=== PATIENT | female | born 1970 | race Caucasian/White ===

== ENCOUNTER 2017-09-28 14:25 | Emergency (ER) | payer BC ==
[2017-09-28] MEDS ORDERED: ACETAMINOPHEN 325 MG TABLET ONE (16:35)
[2017-09-28] MEDS ORDERED: NA CHLORIDE 0.9% 1,000 ML ONE ×2 (16:36→18:59)
[2017-09-28] MEDS ORDERED: METOCLOPRAMIDE 10 MG/2mL INJ ONE (16:36)
[2017-09-28] MEDS ORDERED: DIPHENHYDRAMINE 50 MG/ML VIAL ONE (16:36)
[2017-09-28 17:07] LABS: Absolute Lymphocytes (CBC) 2.2 K/uL (0.7-4.9); Absolute Monocytes 0.8 K/uL (0.1-1.3); Absolute Neutrophil 7.2 K/uL (1.8-8.0); Basophils % 0.7 % (0-1.3); Eosinophils % 1.2 % (0-4.4); Hematocrit 42.2 % (36.0-45.0); Lymphocytes % 20.7 % (15.3-44.8); MCV 93.2 fL (80-100); MPV 7.6 fL (7.6-11.3); Monocytes % 8.1 % (3.3-12.3); RBC Red Blood Cell Count 4.53 M/uL (3.86-4.86)
[2017-09-28 17:12] LABS: Urine Blood NEGATIVE (NEG); Urine Glucose NEGATIVE (NEG); Urine Protein NEGATIVE (NEG); Urine Specific Gravity 1.015 (1.005-1.030); Urine pH >8.5 (5.0-7.0)
[2017-09-28 17:16] LABS: Urine Bacteria <20 /HPF (<20); Urine RBC <5 /HPF (NONE SEEN)
[2017-09-28 17:17] LABS: Urine Amorphous Sediment 3+ /HPF (NONE SEEN); Urine Culture Reflex Order NOT NEEDED
[2017-09-28 17:27] LABS: Albumin 3.7 g/dL (3.4-5.0); Bilirubin Direct 0.1 mg/dL (0-0.2); Bilirubin Total 0.4 mg/dL (0.2-1.0); Potassium 3.7 mmol/L (3.5-5.1); Protein, Total 7.3 g/dL (6.4-8.2)
--- NOTE | 2017-09-28 19:33 | EDPHYS ---
Physician Documentation [facility] Name: Cheryl Chu Age: 46 yrs Sex: Female : 1970 Arrival Date: 09/28/2017 Time: 14:27 Bed 27 Private MD: Ronny Fairchild ED Physician Matt Mcgowan HPI: 09/28 16:27 This 46 yrs old Female presents to ER via Ambulatory with complaints of Flu jmm Symptoms. 16:27 This is a 46 year old female with a history of HTN that presents to the ED with 3 days jmm of earache, sore throat, body aches, and generalized abdomina pain. Patient denies vomiting or diarrhea. . Onset: The symptoms/episode began/occurred gradually, 3 day(s) ago. Historical: - Allergies: 14:49 No Known Allergies; ph - Home Meds: 14:49 Baclofen Oral [Active]; Doxycycline Oral [Active]; losartan Oral [Active]; omeprazole ph 20 mg Oral cpDR 1 cap once daily [Active]; sertraline oral oral [Active]; meloxicam oral oral [Active]; topiramate oral oral [Active]; - PMHx: 14:49 Back pain; Depression; GERD; Hypertension; Migraines; ph - PSHx: 14:49 Cholecystectomy; Hysterectomy; Hernia repair; Kidney stents; ureter reconstruction; ph - Immunization history:: Adult Immunizations up to date. - Social history:: Smoking status: Patient/guardian denies using tobacco. - Ebola Screening: : No symptoms or risks identified at this time. ROS: 17:51 Eyes: Negative for injury, pain, redness, and discharge. jmm 17:51 Neck: Negative for injury, pain, and swelling, Cardiovascular: Negative for chest pain, palpitations, and edema, Respiratory: Negative for shortness of breath, cough, wheezing, and pleuritic chest pain. 17:51 MS/Extremity: Negative for injury and deformity, Skin: Negative for injury, rash, and discoloration. 17:51 Constitutional: Positive for body aches, chills, malaise. 17:51 ENT: Positive for ear pain, sore throat. 17:51 Abdomen/GI: Positive for abdominal pain, Negative for nausea and vomiting, diarrhea. 17:51 Back: Positive for pain at rest. 17:51 Neuro: Positive for headache. 17:51 All other systems are negative. Exam: 17:51 Constitutional: This is a well developed, well nourished patient who is awake, alert, jmm and in no acute distress. Head/Face: atraumatic. ENT: Moist Mucus Membranes Neck: Trachea midline, Supple Chest/axilla: Normal chest wall appearance and motion. Cardiovascular: Regular rate and rhythm. No edema appreciated Respiratory: Normal respirations, no respiratory distress appreciated Abdomen/GI: Non distended, soft Back: Normal ROM Skin: General appearance color normal MS/ Extremity: Moves all extremities, no obvious deformities appreciated, no edema noted to the lower extremities 17:51 Abdomen/GI: Inspection: abdomen appears normal, Bowel sounds: normal, Palpation: abdomen is soft and non-tender, in all quadrants. Vital Signs: 14:55 BP 128 / 86; Pulse 74; Resp 16; Temp 98.2; Pulse Ox 98% on R/A; Pain 7/10; ph 16:45 BP 138 / 90; Pulse 76; Resp 16; Pulse Ox 98% on R/A; ph 17:45 BP 116 / 81; Pulse 74; Resp 18; Pulse Ox 97% on R/A; ph 19:00 BP 114 / 72; Pulse 78; Resp 18; Pulse Ox 96% on R/A; ph 19:51 BP 117 / 80; Pulse 75; Resp 17; Pulse Ox 99% on R/A; kr2 MDM: 16:27 Patient medically screened. [facility] 19:18 Data reviewed: vital signs, nurses notes, lab test result(s). Counseling: I had a [facility] detailed discussion with the patient and/or guardian regarding: the historical points, exam findings, and any diagnostic results supporting the discharge/admit diagnosis, the need for outpatient follow up, to return to the emergency department if symptoms worsen or persist or if there are any questions or concerns that arise at home. 21:30 Counseling: I had a detailed discussion with the patient and/or guardian regarding:. ED [facility] course: Upon reevaluation of the patient's abdomen. The patient developed pain on palpation of the left lower quadrant. I advised the patient of the need for CT imaging for further evaluation. The patient refused. The patient states she does feel better but still has a mild headache. Due to the patient's multiple complaints, symptoms appear related more towards a viral process. I discussed the need for close follow up with the patient's pcp. The patient was given strict return precautions for worsening pain, vomiting, ect. Patient understood and agrees with the plan of care. . 09/28 16:28 Order name: Amylase, Serum; Complete Time: 17:29 [facility] 09/28 16:28 Order name: Basic Metabolic Panel; Complete Time: 17:29 [facility] 09/28 16:28 Order name: CBC with Diff; Complete Time: 17:29 [facility] 09/28 16:28 Order name: Creatinine for Radiology; Complete Time: 17:29 [facility] 09/28 16:28 Order name: Hepatic Function; Complete Time: 17:29 [facility] 09/28 16:28 Order name: Lipase; Complete Time: 17:29 [facility] 09/28 16:28 Order name: Urine Microscopic Only; Complete Time: 17:29 [facility] 09/28 17:02 Order name: Urine Dipstick--Ancillary (enter results); Complete Time: 17:29 09/28 17:02 Order name: Urine --Ancillary (enter results); Complete Time: 17:29 09/28 17:31 Order name: Strep; Complete Time: 19:18 [facility] 09/28 17:31 Order name: Cass Screen Profile; Complete Time: 18:50 [facility] 09/28 18:59 Order name: Throat Culture [facility] 09/28 16:28 Order name: IV Saline Lock; Complete Time: 17:10 [facility] 09/28 16:28 Order name: Labs collected and sent; Complete Time: 17:10 [facility] 09/28 16:28 Order name: Urine Dipstick-Ancillary (obtain specimen); Complete Time: 17:10 [facility] Administered Medications: 16:50 Drug: Tylenol 650 mg Route: PO; ph 19:00 Follow up: Response: No adverse reaction ph 16:54 Drug: NS 0.9% 1000 ml Route: IV; Rate: 1 bolus; Site: right antecubital; ph 19:00 Follow up: Response: No adverse reaction; IV Status: Completed infusion ph 16:55 Drug: Reglan 10 mg Route: IVP; Site: right antecubital; ph 19:01 Follow up: Response: No adverse reaction ph 16:55 Drug: diphenhydrAMINE 12.5 mg Route: IVP; Site: right antecubital; ph 19:01 Follow up: Response: No adverse reaction ph 18:58 Drug: NS 0.9% 1000 ml Route: IV; Rate: 1 bolus; Site: right antecubital; rv 19:52 Follow up: Response: No adverse reaction; IV Status: Completed infusion kr2 Disposition: 09/29 07:04 Co-signature as Attending Physician, Matt Mcgowan MD. rn Disposition: 09/28/17 19:31 Discharged to Home. Impression: Abdominal Pain, Acute Headache, Otalgia, Acute pharyngitis. - Condition is Stable. - Discharge Instructions: Abdominal Pain, Adult, Pharyngitis, Rehydration, Adult. - Prescriptions for Ibuprofen 800 mg Oral Tablet - take 1 tablet by ORAL route every 8 hours As needed take with food; 30 tablet. Reglan 10 mg Oral Tablet - take 1 tablet by ORAL route every 6 hours take 30 minutes before meals and at bedtime; 20 tablet. - Medication Reconciliation Form, Thank You Letter, Antibiotic Education, Prescription Opioid Use form. - Follow up: Ronny Fairchild MD; When: 1 - 2 days; Reason: Continuance of care. - Notes: Please follow up with your primary care provider in 2 to 3 days for reevaluation. Please return to the ED if you develop increased pain, vomiting, fever, or any other concerning symptoms. Signatures: Dispatcher [employer] EDMS Benjamín Bailey PA PA jmm Nieto, Roman, MD MD rn Hall, Patricia, RN RN ph Reaves, Karey, RN RN kr2 Sim Lindo RN RN rv Corrections: (The following items were deleted from the chart) 09/28 19:53 19:31 09/28/2017 19:31 Discharged to Home. Impression: Abdominal Pain; Acute Headache; kr2 Otalgia; Acute pharyngitis. Condition is Stable. Forms are Medication Reconciliation Form, Thank You Letter, Antibiotic Education, Prescription Opioid Use. Follow up: Ronny Fairchild; When: 1 - 2 days; Reason: Continuance of care. yessenia 21:33 19:18 Counseling: I had a detailed discussion with the patient and/or guardian yessenia regarding: the historical points, exam findings, and any diagnostic results supporting the discharge/admit diagnosis, radiology results, the need for outpatient follow up, to return to the emergency department if symptoms worsen or persist or if there are any questions or concerns that arise at home, yessenia
--- NOTE | 2017-09-28 19:33 | ER ---
Nurse's Notes [facility] Name: Cheryl Chu Age: 46 yrs Sex: Female : 1970 Arrival Date: 09/28/2017 Time: 14:27 Bed 27 Private MD: Ronny Fairchild Diagnosis: Abdominal Pain;Acute Headache;Otalgia;Acute pharyngitis Presentation: 09/28 15:10 Presenting complaint: Patient states: Pt c/o sore throat, body aches, and LLQ pain, ph denies N/V/D or fever. States " The pain in my stomach almost felt like a kidney stone trying to pass. I have also been having phantom gallbladder pains.". Transition of care: patient was not received from another setting of care. Onset of symptoms was September 28, 2017. Risk Assessment: Do you want to hurt yourself or someone else? Patient reports no desire to harm self or others. Initial Sepsis Screen: Does the patient meet any 2 criteria? No. Patient's initial sepsis screen is negative. Does the patient have a suspected source of infection? No. Patient's initial sepsis screen is negative. Care prior to arrival: None. 15:10 Method Of Arrival: Ambulatory ph 15:10 Acuity: ELO 3 ph Historical: - Allergies: 14:49 No Known Allergies; ph - Home Meds: 14:49 Baclofen Oral [Active]; Doxycycline Oral [Active]; losartan Oral [Active]; omeprazole ph 20 mg Oral cpDR 1 cap once daily [Active]; sertraline oral oral [Active]; meloxicam oral oral [Active]; topiramate oral oral [Active]; - PMHx: 14:49 Back pain; Depression; GERD; Hypertension; Migraines; ph - PSHx: 14:49 Cholecystectomy; Hysterectomy; Hernia repair; Kidney stents; ureter reconstruction; ph - Immunization history:: Adult Immunizations up to date. - Social history:: Smoking status: Patient/guardian denies using tobacco. - Ebola Screening: : No symptoms or risks identified at this time. Screenin:10 Abuse screen: Denies threats or abuse. Denies injuries from another. Nutritional ph screening: No deficits noted. Tuberculosis screening: No symptoms or risk factors identified. Fall Risk None identified. Assessment: 16:15 General: Appears in no apparent distress. uncomfortable, obese, well groomed, Behavior ph is calm, cooperative, appropriate for age, Denies fever. Pain: Complains of pain in head, mid back, low back, LLQ Pain currently is 8 out of 10 on a pain scale. Neuro: Level of Consciousness is awake, alert, obeys commands, Oriented to person, place, time, situation, Reports headache in left frontal area, Denies weakness blurred vision dizziness. Cardiovascular: Capillary refill < 3 seconds in bilateral fingers Patient's skin is warm and dry. Respiratory: Airway is patent Respiratory effort is even, unlabored, Respiratory pattern is regular, symmetrical, Denies cough, shortness of breath. GI: Reports lower abdominal pain, nausea, Patient currently denies diarrhea, vomiting. : Denies burning with urination, urinary frequency. EENT: Reports pain when swallowing. Derm: Skin is intact, is healthy with good turgor, Skin is pink, warm \\T\\ dry. Musculoskeletal: Circulation, motion, and sensation intact. Range of motion: intact in all extremities. 17:00 Reassessment: Patient appears in no apparent distress at this time. Patient and/or ph family updated on plan of care and expected duration. Pain level reassessed. Patient is alert, oriented x 3, equal unlabored respirations, skin warm/dry/pink. 18:18 Reassessment: Patient appears in no apparent distress at this time. Patient and/or ph family updated on plan of care and expected duration. Pain level reassessed. Patient is alert, oriented x 3, equal unlabored respirations, skin warm/dry/pink. Pt resting quietly w/ light off n room ,respirations even and unlabored, reports that pain has improved to 4/10 and denies nausea, SO at bedside, VSS, awaiting lab results. 19:30 Reassessment: Patient appears in no apparent distress at this time. Patient and/or kr2 family updated on plan of care and expected duration. Pain level reassessed. Patient is alert, oriented x 3, equal unlabored respirations, skin warm/dry/pink. Patient states feeling better. Vital Signs: 14:55 BP 128 / 86; Pulse 74; Resp 16; Temp 98.2; Pulse Ox 98% on R/A; Pain 7/10; ph 16:45 BP 138 / 90; Pulse 76; Resp 16; Pulse Ox 98% on R/A; ph 17:45 BP 116 / 81; Pulse 74; Resp 18; Pulse Ox 97% on R/A; ph 19:00 BP 114 / 72; Pulse 78; Resp 18; Pulse Ox 96% on R/A; ph 19:51 BP 117 / 80; Pulse 75; Resp 17; Pulse Ox 99% on R/A; kr2 ED Course: 14:27 Patient arrived in ED. sb2 14:28 Ronny Fairchild MD is Private Physician. sb2 14:55 Arm band placed on right wrist. ph 15:12 Triage completed. ph 15:54 Benjamín Bailey PA is PHCP. jmm 15:54 Matt Mcgowan MD is Attending Physician. jmm 16:30 Rosalind Triana RN is Primary Nurse. ph 16:50 Inserted saline lock: 20 gauge in right antecubital area, using aseptic technique. ph Blood collected. 17:10 Patient has correct armband on for positive identification. Bed in low position. Call ph light in reach. Side rails up X 1. Pulse ox on. NIBP on. Warm blanket given. 18:23 No provider procedures requiring assistance completed. ph 19:30 Ronny Fairchild MD is Referral Physician. jmm 19:52 IV discontinued, intact, bleeding controlled, No redness/swelling at site. Pressure kr2 dressing applied. Administered Medications: 16:50 Drug: Tylenol 650 mg Route: PO; ph 19:00 Follow up: Response: No adverse reaction ph 16:54 Drug: NS 0.9% 1000 ml Route: IV; Rate: 1 bolus; Site: right antecubital; ph 19:00 Follow up: Response: No adverse reaction; IV Status: Completed infusion ph 16:55 Drug: Reglan 10 mg Route: IVP; Site: right antecubital; ph 19:01 Follow up: Response: No adverse reaction ph 16:55 Drug: diphenhydrAMINE 12.5 mg Route: IVP; Site: right antecubital; ph 19:01 Follow up: Response: No adverse reaction ph 18:58 Drug: NS 0.9% 1000 ml Route: IV; Rate: 1 bolus; Site: right antecubital; rv 19:52 Follow up: Response: No adverse reaction; IV Status: Completed infusion kr2 Outcome: 19:31 Discharge ordered by . jmm 19:52 Discharged to home ambulatory. kr2 19:52 Condition: improved 19:52 Discharge instructions given to patient, Instructed on discharge instructions, follow up and referral plans. medication usage, Demonstrated understanding of instructions, follow-up care, medications, Prescriptions given X 2. 19:53 Patient left the ED. kr2 Signatures: Benjamín Bailey PA PA jmm Hall, Patricia RN RN Merline Bangura RN RN kr2 Gisel Fernandez 2 Sim Lindo, RN RN rv
== END 2017-09-28 19:53 | disposition home or self-care (01) ==
LOC: ER 14:25
DX: R10.9 Unspecified abdominal pain (principal); R51 Headache; H92.09 Otalgia, unspecified ear; J02.9 Acute pharyngitis, unspecified; I10 Essential (primary) hypertension
CPT/HCPCS: 36415; 80048; 80076; 81003; 81015; 81025; 82150; 83690; 85025; 86308; 87070; 87081; 96361; 96374; 96375; 99284; J2765; J7030